=== PATIENT | male | born 1995 | race African-American/Black ===

== ENCOUNTER 2019-06-23 14:57 | Emergency (ER) | payer BC, MEDICAID, SELFPAY ==
--- NOTE | 2019-06-23 15:04 | ED.GENADULT ---
HPI - General Adult General Chief complaint: Upper Respiratory Infection Stated complaint: chest congestion/chest tightness/sob Time Seen by Provider: 06/23/19 15:18 Source: patient Mode of arrival: ambulatory Limitations: no limitations History of Present Illness HPI narrative: 24-year-old male patient presents to the the medical center with complaints of chest congestion and shortness of breath. Patient states that last week he had some type of cold virus with coughing, sore throat, runny nose. Patient states that most of his symptoms have passed however he still feels like he is having some congestion to the chest along with some shortness of breath and mild coughing. Patient does have history of asthma but does not have an inhaler at this time. Patient denies any chest pain at this time. Related Data Allergies Allergy/AdvReac Type Severity Reaction Status Date / Time animal dander Allergy Unknown Sneezing Verified 06/23/19 15:15 No Known Allergies Allergy Verified 06/23/19 15:15 Review of Systems Review of Systems: Narrative: CONSTITUTIONAL: Denies fever, chills, or sweats. EYES: Denies visual changes, redness, or discharge. ENT: Denies rhinorrhea, congestion, sore throat, or otalgia. CARDIOVASCULAR: Denies chest pain, palpitations, or edema. RESPIRATORY: Positive mild cough, positive dyspnea. GASTROINTESTINAL: Denies abdominal pain, nausea, vomiting, or diarrhea. GENITOURINARY: Denies dysuria or hematuria. SKIN: Denies rash or itching. MUSCULOSKELETAL: Denies back pain, joint pain, or myalgia. NEUROLOGIC: Denies headache, numbness, or weakness. PSYCHIATRIC: Denies anxiety or depression. PMFSH Past Medical History Medical History (Updated 06/23/19 @ 15:24 by DEBORA Townsend) Asthma Family History Family History Other Asthma Diabetes mellitus Hypertension Social History Social History Smoking status: Never smoker Alcohol intake: current Comments At the time of my signature I agree with nursing past medical history, surgical, social, and family history. There is no relevant family history pertinent to the presenting complaint. Exam Narrative: Exam Narrative: GENERAL: Well-appearing, well-nourished, and in no acute distress. HEAD: Normocephalic, atraumatic. No tenderness noted to frontal or maxillary sinuses on palpation. EYES: PERRLA and EOMI. ENT: Nares clear, no rhinorrhea or epistaxis. Mucous membranes moist. Posterior pharynx with no erythema, tonsillar edema, exudates or lesions present. Bilateral TMs are clear no erythema or foreign bodies in the canal. NECK: Supple. No lymphadenopathy CHEST: Patient does have slight inspiratory wheezing and rhonchi noted to the right upper lobe on auscultation. No respiratory distress. Patient able talk clear complete sentences. No tripoding noted. HEART: Regular rate and rhythm. No murmur heard. Normal peripheral pulses. ABDOMEN: Soft, nontender, nondistended, normal active bowel sounds. EXTREMITIES: Normal range of motion. No edema. SKIN: Warm, dry, no rash. NEURO: No focal deficits. Alert and oriented x3. Course Reevaluation(s) Reevaluation #1: Reevaluation after his DuoNeb was completed. Patient states that he is feeling better after receiving the DuoNeb. Patient's lung sounds are clear to bilateral upper and lower lobes. Discussed with patient we are going to treat him as an asthma exacerbation today and discharge him home with an albuterol inhaler and some oral steroids. Patient verbalized understanding denies any other questions or concerns at this time. Date: 06/23/19 Time: 15:51 Vital Signs Vital signs: Vital Signs Temperature 36.8 C 06/23/19 15:08 Pulse Rate 77 06/23/19 15:08 Respiratory Rate 18 06/23/19 15:08 Blood Pressure 141/72 H 06/23/19 15:08 Pulse Oximetry 100 06/23/19 15:08 Temperature 36.8 C 06/23/19 15:08 Pulse Rate 77 06/23/19 15:08 Respiratory Rate
[2019-06-23 15:08] VITALS: BP 141/72; PULSE 77; RESP 18; TEMP 36.8; O2SAT 100
[2019-06-23] MEDS: ALBUTEROL SULFATE NEB 2.5 MG/3 ML INH INHALATION (15:26)
[2019-06-23] MEDS: IPRATROPIUM BR 0.02% INH SOLN 0.5 MG/2.5 ML VIAL INHALATION (15:27)
[2019-06-23 15:49] VITALS: PULSE 78; PULSE 82; RESP 16; O2SAT 100; O2SAT 98
== END 2019-06-23 15:55 | disposition home or self-care (01) ==
PROVIDERS: Emergency Provider Nurse Practitioner Family
DX: J45.901 Unspecified asthma with (acute) exacerbation (principal)
CPT/HCPCS: 94640; 99213; G0463

== ENCOUNTER 2020-04-20 08:12 | Outpatient (NON) | payer OTHER, SELFPAY ==
[2020-04-20 14:32] LABS: Influenza Control Positive
[2020-04-21 00:19] LABS: SARS-CoV-2 RNA PCR Positive
== END 2020-04-20 08:13 ==
PROVIDERS: PCP Internal Medicine; Visit Provider Clinical Nurse Specialist
DX: U07.1 COVID-19 (principal)
CPT/HCPCS: 87635; 87804; C9803; U0003